=== PATIENT | female | born 2000 | race Hispanic/Latino ===

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

== ENCOUNTER 2019-03-16 20:11 | Observation (INO) | payer SELFPAY ==
[2019-03-16 20:34] LABS: Bilirubin Negative (Negative); Blood, Urine Negative (Negative); Clarity Clear (Clear); Glucose, Urine (Dipstick) Negative (Negative); Leukocyte Trace (Negative); Nitrite Positive (Negative); Protein, Urine (Dipstick) 30 mg/dL (Neg-Trace); Specific Gravity, Urine 1.025 (1.005-1.030); Urobilinogen 0.2 mg/dL (0.2-1.0); pH, Urine 6.5 (5.0-9.0)
[2019-03-16 20:36] LABS: RBC/HPF 0-3 HPF (0-3)
[2019-03-16 20:37] LABS: Bacteria/HPF 3+ HPF (None Seen); Hyaline Casts/LPF 0-3 HYALINE CAST LPF (0-3 Hyaline); Squamous Epithelial 0-3 HPF (0-3)
[2019-03-16] MEDS ORDERED: cefTRIAXone\\ROCEPHIN 1 GM VIAL ONE ×2 (20:47→22:12)
[2019-03-16] MEDS ORDERED: Metoclopramide HCl 10 MG/2 ML VIAL ONE (20:47)
[2019-03-16 20:49] LABS: #Lymphocytes 0.9 thou/uL (1.20-3.40); #Monocytes 0.3 thou/uL (0.11-0.59); #Neutrophils 7.7 thou/uL (1.40-6.50); %Basophils 0.4 % (0.0-1.0); %Lymphocytes 9.9 % (28.0-48.0); %Monocytes 3.3 % (0.0-4.0); %Neutrophils 86.4 % (31.0-61.0); Hemoglobin 14.5 g/dL (12.0-16.0); Mean Corpuscular HGB CONC 35.1 g/dL (32.0-36.0); Mean Corpuscular Hemoglobin 30.6 pg (25.0-35.0); Mean Corpuscular Volume 87.1 fL (78.0-98.0); Mean Platelet Volume 11.4 fL (7.4-10.4); Platelet Count 164 thou/uL (130-400); RBC Distribution Width 11.1 % (11.5-14.5); Red Blood Cell (RBC) Count 4.74 mill/uL (4.00-5.20); White Blood Cell (WBC) Count 8.9 thou/uL (4.8-10.8)
[2019-03-16 20:59] LABS: Bicarbonate (HCO3v) 19.8 mmol/L (22.0-28.0); Calcium, Ionized 1.11 mmol/L (See Comments:); Chloride 108 mmol/L (98-107); Hemoglobin - Calc 14.5 g/dL (12.0-16.0); O2 Tension (PvO2) 65.4 mmHg (35.0-45.0); Potassium 3.5 mmol/L (3.5-5.1); Sodium 135 mmol/L (138-145); T. Carbon Dioxide 20.8 mmol/L (22.0-28.0); pH (Venous) 7.399 (7.320-7.430); vO2 Saturation-calc 92.8 % (60.0-85.0)
[2019-03-16 21:09] LABS: ALT (SGPT) 38 U/L (8-55); AST (SGOT) 21 U/L (5-30); Albumin 4.7 g/dL (3.5-5.0); Alkaline Phosphatase 60 U/L (40-150); Anion Gap 16 mmol/L (10-20); BUN (Urea Nitrogen) 10 mg/dL (8.4-21.0); Bilirubin, Total 0.6 mg/dL (0.2-1.2); Calc. Creatinine Clearance 0 mL/min (70-130); Calcium 10.1 mg/dL (7.8-10.44); Carbon Dioxide 18 mmol/L (22-29); Chloride 106 mmol/L (98-107); Estimated GFR-MDRD Greater than 90; Globulin 3.1 g/dL (2.4-3.5); Glucose 97 mg/dL (70-105); Lipase 15 U/L (8-78); Potassium 3.7 mmol/L (3.5-5.1); Protein, Total 7.8 g/dL (6.0-8.3); Sodium 136 mmol/L (136-145)
[2019-03-16] MEDS ORDERED: 1/2 NS w/KCL 20 mEq 0 ML ONE (22:12)
[2019-03-16] MEDS ORDERED: Sodium Chloride 0.9% 100 ML ONE (22:12)
--- NOTE | 2019-03-16 22:12 | PDOC.EVN ---
Event Note - Event Note Event Note: HISTORY AND PHYSICAL Time: 2209 Location: [facility] ED Events: I just discussed the case with Huyen Orellana and acceptred the patient as a direct admission CC: N/V at home HPI: 18 yo G1 at 7 weeks with DX of possible pyelo due to 3+ bacteria on UA and N/V. She is afebrile. She is still at [facility] ED. I have taken the report. She has not yet seen an OB provider. No VB. OB sono will be ordered here at . Review of Systems: ROS completed and as per HPI Past medical HX: neg Surgical HX: none Social HX: negative Physical: Afebrile, normotensive but [id number] NAD abd soft No VB CBC with WBC 8.9 LFTs wnl Cr normal Assessment and plan: 1. 7 weeks by LMP, no OB care yet...UA with evidence UTI. Although afebrile, we will admit as cannot hold down po ABX. 1. Admit here for IV rocephin 2. Will have urine culture and blood culture sent there 3. zofran prn 4. Give D5LR, then swtitch to [facility] for rocephin
[2019-03-16] MEDS ORDERED: Sodium Chloride 0.9% 1,000 ML IV SCH (22:15)
[2019-03-16] MEDS ORDERED: Dextrose 5%-Lactated Ringers 1,000 ML IV SCH (22:15)
--- NOTE | 2019-03-16 22:21 | PDOC.EVN ---
Event Note - Event Note Event Note: Med change: I will switch from zofran to phenergan
[2019-03-16] MEDS ORDERED: Promethazine HCl 25 MG/ML VIAL IM/IV PRN (22:22)
[2019-03-16] MEDS ORDERED: Multivitamins, Adult 10 ML, Folic Acid 1 MG, Thiamine HCl 100 MG in Dextrose 5 %-0.45 %... IV SCH (23:00)
[2019-03-16] MEDS ORDERED: cefTRIAXone\\ROCEPHIN 2 GM in Sodium Chloride 0.9% 100 ML IVPB SCH (23:00)
[2019-03-16 23:43] VITALS: BMI 20.4
[2019-03-16] MEDS ORDERED: Ondansetron HCl/PF 4 MG in Sodium Chloride 0.9% 50 ML IVPB SCH (23:59)
[2019-03-16] MEDS ORDERED: Ondansetron PF 4 MG/2 ML Vial SLOW IVP SCH (23:59)
[2019-03-17] MEDS: Sodium Chloride 0.9% 1,000 ML IV SCH ×3 (01:16→15:01)
--- NOTE | 2019-03-17 06:45 | PDOC.OBAPN ---
FMR OB AP PN: Sub - Interval History Hospital Day: 2 Chief Complaint: N/V, UTI sx's Indentification: 18 yo @ 7.5 wks by 7.4 wk sono done yesterday Interval History: Pt reports feeling much better. Denies any pain. Tolerating PO FMR OB AP PN: Obj - Maternal Vital signs: BP: [101/54] HR: [101] RR: [18] Tmax: [98.2] Pox: [100]% on [RA] Wt: [45 kg] - Urine output I&O: 03/15/19 03/16/19 03/17/19 06:59 06:59 06:59 Intake Total 2388 Output Total 600 Balance 1788 FMR OB AP PN: Exam - Physical Exam General: NAD, awake, alert and oriented HEENT: normocephalic and atraumatic, PERRLA, no scleral icterus, grossly normal vision, grossly normal hearing Neck: supple, no LAD Heart: RRR, normal S1/S2, no murmurs/rubs/gallops, pulses present, no edema General: CTAB, no respiratory distress, good air movement, no rales/rhonchi, no wheezing, no retractions Abdomen: soft, gravid, non-tender, bowel sound present, no masses, no hernias, other (No CVA tenderness noted) Musculoskeletal: normal gait and station, pulses present Neurological: sensation to pain,touch and proprioception grossly normal Skin: no rash Psychiatric: intact recent and remote memory, good judgement and insight, normal mood and affect FMR OB AP PN: Data - Labs Lab results: Laboratory Results - last 24 hr 03/16/19 03/16/19 03/16/19 20:22 20:40 20:40 WBC 8.9 RBC 4.74 Hgb 14.5 Hct 41.3 POC Venous Hct MCV 87.1 MCH 30.6 MCHC 35.1 RDW 11.1 L Plt Count 164 MPV 11.4 H Neutrophils % 86.4 H Lymphocytes % 9.9 L Monocytes % 3.3 Eosinophils % 0.0 Basophils % 0.4 Neutrophils # 7.7 H Lymphocytes # 0.9 L Monocytes # 0.3 Eosinophils # 0.0 Basophils # 0.0 POC Bicarbonate Calc POC VBG pH VBG pCO2 VBG pO2 POC VBG CO2 (Calc) POC VBG O2 Sat (Calc) POC VBG Base Excess POC VBG Hemoglobin Calc POC Venous Sodium Sodium 136 POC Venous Potassium Potassium 3.7 POC Venous Chloride Chloride 106 Carbon Dioxide 18 L Anion Gap 16 POC Noel Anion Gap Calc BUN 10 Creatinine 0.60 Estimated GFR (MDRD) Greater than 90 Glucose 97 Lactic Acid Calcium 10.1 POC Venous Ion Calcium Total Bilirubin 0.6 AST 21 ALT 38 Alkaline Phosphatase 60 Serum Total Protein 7.8 Albumin 4.7 Globulin 3.1 Albumin/Globulin Ratio 1.5 Lipase 15 Urine Color Yellow Urine Clarity Clear Urine pH 6.5 Ur Specific [place] 1.025 Urine Protein 30 H Urine Glucose (UA) Negative Urine Ketones > or equal to 80 H Urine Blood Negative Urine Nitrite Positive H Urine Bilirubin Negative Urine Urobilinogen 0.2 Ur Leukocyte Esterase Trace H Urine RBC 0-3 Urine WBC 11-20 H Ur Squamous Epith Cells 0-3 Urine Bacteria 3+ H Hyaline Casts 0-3 HYALINE CAST 03/16/19 03/16/19 20:40 20:40 WBC RBC Hgb Hct POC Venous Hct 43.0 MCV MCH MCHC RDW Plt Count MPV Neutrophils % Lymphocytes % Monocytes % Eosinophils % Basophils % Neutrophils # Lymphocytes # Monocytes # Eosinophils # Basophils # POC Bicarbonate Calc 19.8 L POC VBG pH 7.399 VBG pCO2 32.0 L VBG pO2 65.4 H POC VBG CO2 (Calc) 20.8 L POC VBG O2 Sat (Calc) 92.8 H POC VBG Base Excess -4.0 L POC VBG Hemoglobin Calc 14.5 POC Venous Sodium 135 L Sodium POC Venous Potassium 3.5 Potassium POC Venous Chloride 108 H Chloride Carbon Dioxide Anion Gap POC Noel Anion Gap Calc 11 BUN Creatinine Estimated GFR (MDRD) Glucose Lactic Acid 1.4 Calcium POC Venous Ion Calcium 1.11 Total Bilirubin AST ALT Alkaline Phosphatase Serum Total Protein Albumin Globulin Albumin/Globulin Ratio Lipase Urine Color Urine Clarity Urine pH Ur Specific [place] Urine Protein Urine Glucose (UA) Urine Ketones Urine Blood Urine Nitrite Urine Bilirubin Urine Urobilinogen Ur Leukocyte Esterase Urine RBC Urine WBC Ur Squamous Epith Cells Urine Bacteria Hyaline Casts - Imaging Imaging: Sono done yesterday @ 03/16 showed 7.4 wk . Sono inconsistent with dates by LMP. ELISA updated to 10/29/2019 by 7.4 wk sono. IUP noted. Ovary's normal. FMR OB AP PN: A/P - Problem List (1) Pyelonephritis affecting in first trimester Current Visit: Yes Status: Acute Code(s): O23.01 - INFECTIONS OF KIDNEY IN , FIRST TRIMESTER (2) Morning sickness Current Visit: Yes Status: Acute Code(s): O21.0 - MILD HYPEREMESIS GRAVIDARUM (3) Current Visit: Yes Status: Acute Disposition: 18 yo @ 7.5 wks dated by 7.4 wk Sono here with pyelo and intractable N/V of Pyelonephritis -No fevers since admission. -Continue Rocephin IV. -U/A shows Nitrite +, Trace LE and 3+ Bacteria. Urine Cx pending. -No CVA tenderness Will continue IV abx for today. will await cx. Continue to monitor for fever and tx as needed. N/V of -Promethazine PRN. -Banana bag administered. -Pt tolerating PO at this time. Will hold fluids. Discussion: Date/Time: 03/17/19 0644
--- NOTE | 2019-03-17 07:24 | ULT ---
ULTRASOUND: Date: 03/16/19 INDICATION: Hyperemesis gravidarum. FINDINGS: There is an early live intrauterine gestation with cardiac activity documented, 163 bpm. Within a gestational sac, there is evidence of a pole and yolk sac. By crown-rump length measurement, the average gestational age by ultrasound is 7 weeks/4 days, placing estimated date of delivery at 0 10/29/2019. Stage of clinical dates are 8 weeks/4 days. No significant abnormality of the ovaries. No free pelvic fluid is seen. IMPRESSION: 1. Early live intrauterine gestation as above. 2. Continued imaging follow-up may be obtained as clinically necessary. POS: CHRISTOPHER
[2019-03-17] MEDS ORDERED: Cephalexin 250 MG CAP PO SCH (09:30)
[2019-03-17] MEDS ORDERED: cefTRIAXone\\ROCEPHIN 2 GM in Sodium Chloride 0.9% 100 ML IVPB SCH ×2 (18:30→21:00)
[2019-03-17 21:30] VITALS: BP 93/52; TEMP 98.2
--- NOTE | 2019-03-18 14:00 | DIS ---
DATE OF ADMISSION: 03/16/2019 DATE OF DISCHARGE: 03/17/2019 ADMITTING DIAGNOSES: Seven week gestation with possible pyelonephritis and urinary tract infection. DISCHARGE DIAGNOSES: Urinary tract infection, at 7 weeks gestation. HOSPITAL COURSE: The patient is a 18-year-old female, who was admitted for concerns of pyelonephritis from ER evaluation. The patient was placed on Rocephin and urine cultures and blood cultures were collected. Over the course of her stay here, the patient has remained afebrile. She had no CVA tenderness, was tolerating p.o. well and tolerated p.o. Keflex without any difficulty. Given the entire clinical picture yesterday after admission from the outside facility, decision was made to discharge the patient home on Keflex with instructions to follow up on her urine culture sensitivities as her urine cultures had grown back E coli within first 24 hours. The patient has remained afebrile at time of my evaluation yesterday evening. The patient denied any pain or bleeding or fever. Temperature at time of discharge is 98.22, pulse of 80, respiratory rate of 16, saturating at 100% on room air, blood pressure 93/52. Urine culture is positive for E coli with ferrara sensitivity. The patient was discharged home on Keflex 500 mg to be taken 3 times a day for the next 5 days. She was also given a dose of Rocephin prior to discharge yesterday evening. She has not established care with an OB provider as of yet. I did legal counsel the clinic does see patients prior to the insurance being completed and have counseled her to go there for followup in the next week or so. The patient is being discharged to home on Keflex 500 mg 3 times a day with instructions to follow up with primary clinic. Job ID: [id number]
== END 2019-03-17 20:48 | disposition home or self-care (01) ==
LOC: SCSER 20:11 → 3SW 22:55
PROVIDERS: ADMIT Obstetrics & Gynecology; ATTEND Obstetrics & Gynecology
DX: O23.01 Infections of kidney in pregnancy, first trimester (principal); B96.20 Unspecified Escherichia coli [E. coli] as the cause of diseases classified elsewhere; O21.9 Vomiting of pregnancy, unspecified; Z3A.01 Less than 8 weeks gestation of pregnancy
CPT/HCPCS: 36415; 76856; 80053; 81003; 81015; 82330; 82803; 83605; 83690; 85025; 87040; 87077; 87086; 87186; 96361; 96365; 96366; 96367; 96368; G0378; J0696; J2765; J3411; J3480; J3490; J7042

== ENCOUNTER 2019-10-12 15:16 | Day surgery (SDC) | payer OTHER ==
[2019-10-12 16:01] VITALS: BMI 27.4
[2019-10-12] MEDS ORDERED: Acetaminophen 500 MG TAB PO SCH (16:30)
[2019-10-12] MEDS ORDERED: Iron Sucrose Complex 500 MG in Sodium Chloride 0.9% 250 ML 250 ML IVPB SCH (16:30)
[2019-10-12] MEDS ORDERED: hydrALAZINE 20 MG/ML VIAL SLOW IVP PRN (17:15)
[2019-10-12] MEDS ORDERED: Ondansetron PF 4 MG/2 ML Vial IVP PRN (17:15)
[2019-10-12] MEDS ORDERED: Promethazine HCl 25 MG/ML VIAL IM PRN (17:15)
--- NOTE | 2019-10-12 17:22 | PDOC.FPROB ---
FMR OB H&P: HPI - History of Present Illness Chief Complaint: Anemia- Iron Infusion History of Present Illness: Pt is a 19 yo F G1PO @ 37.4 wks via 7.4 wk US with recent GBS bacturia who present for iron infusion. She says she has had no bleeding, LOF, contractions. She endorses good movement. Primary Care Physician: KIKI- ELIZABETH FMR OB H&P: Current - Care : 1 Para: 0 Gestational age: 37.4 Due date: 10/29/19 Dating Criteria: 7.4 wk US FMR OB H&P: History - Past Medical History PMH: None - OB History OB History: Anemia of , GBS Bacturia - Surgical History Sx History: None - Social History Social History: No tobacco, alcohol, or recreational drug use. - Family History Family History: None FMR OB H&P: Medications - Current Home Medications: Medication Instructions Recorded Confirmed Type Ferrous Sulfate [Iron] 325 mg PO DAILY 10/12/19 10/12/19 History [id number]/Iron Fum/Folic/Docusate 100 mg PO DAILY 10/12/19 10/12/19 History [ 19] Allergies/Adverse Reactions: Allergies Allergy/AdvReac Type Severity Reaction Status Date / Time No Known Drug Allergies Allergy Verified 10/12/19 16:01 FMR OB H&P: ROS - Review of Systems General: denies: fever/chills Eyes: denies: vision changes ENT: denies: nasal congestion, rhinorrhea Cardiovascular: denies: chest pain, palpitation Respiratory: denies: cough, congestion, shortness of breath Gastrointestinal: denies: abdominal pain, nausea, vomiting, diarrhea, constipation Genitourinary (Female): denies: vaginal discharge, vaginal bleeding Musculoskeletal: denies: pain, stiffness, swelling Neurologic: denies: numbness, weakness, headache Integumentary: denies: rash Hematologic/Lymphatic: denies: prolonged or excessive bleeding FMR OB H&P: Vital Signs - Maternal Vital signs: BP: 119/69, HR: 85 - Heart Tones Baseline: 130 Variability: moderate Acceleration: present Deceleration: absent Category: category 1 FMR OB H&P: Physical Exam - Physical Exam General: NAD, awake, alert and oriented HEENT: normocephalic and atraumatic, PERRLA, oropharynx clear Neck: supple, trachea midline, no LAD Heart: RRR, normal S1/S2, no murmurs/rubs/gallops General: CTAB, no respiratory distress, good air movement, no rales/rhonchi, no wheezing, no retractions Abdomen: soft, gravid, non-tender, bowel sound present Musculoskeletal: pulses present, FROM in all four extremities Neurological: cranial nerves II through XII intact, no focal deficit Skin: no rash, capillary refill <2 seconds Lymphatic: no unusual bruising or bleeding Psychiatric: normal mood and affect FMR OB H&P: A/P - Problem List (1) Anemia affecting in third trimester Status: Acute Code(s): O99.013 - ANEMIA COMPLICATING , THIRD TRIMESTER (2) GBS bacteriuria Status: Acute Code(s): R82.71 - BACTERIURIA (3) Status: Acute Disposition: Pt is a 19 yo F @ 37.4 wks by LMP with anemia of who presents for iron transfusion. 1. Anemia of * Unable to obtain records unsure of what her last H&H was * Will transfuse iron per protocol * Will give benadryl if needed for transfusion reaction 2. Intrauterine 37.4 wks by 7.4 wk US * Will keep her on monitoring during transfusion 3. GBS Bacturia Currently on Amoxicillin Dispo: Pending transfusion Discussion: Date/Time: 10/12/19 1720 This H&P was discussed with [] and [] who agree with the above documentation and plan. Addendum - Attending - Attending Attestation Date/Time: 10/13/19 1006 I personally evaluated the patient and discussed the management with Dr. Shawn Suarez on 10/12/2019 I agree with the History, Examination, Assessment and Plan documented above with any addition or exceptions noted below - 19 yo @37.4 weeks here for iron infusion. Denies any ctx, LOF. (+) FM. Afebrile VSS. Exam repeated by me and agree with resident's findings. A/P: 1) IUP@37.4 weeks with anemia of - IV iron infusion as per protocol. D/c home after infusion if no reaction. Cat 1 FHTs.
== END 2019-10-12 23:00 | disposition home or self-care (01) ==
LOC: L&D/OP 15:16
PROVIDERS: ATTEND Family Medicine
DX: O99.013 Anemia complicating pregnancy, third trimester (principal); D64.9 Anemia, unspecified; O99.89 Other specified diseases and conditions complicating pregnancy, childbirth and the puerperium; R82.71 Bacteriuria; Z3A.37 37 weeks gestation of pregnancy; Z79.899 Other long term (current) drug therapy
CPT/HCPCS: J1756; J7050

== ENCOUNTER 2019-10-27 05:52 | Emergency (ER) | payer OTHER ==
[2019-10-27] MEDS ORDERED: diphenhydrAMINE 25 MG CAP ONE (06:02)
== END 2019-10-27 06:06 | disposition home or self-care (01) ==
LOC: ERS 05:52
DX: O99.713 Diseases of the skin and subcutaneous tissue complicating pregnancy, third trimester (principal); L50.9 Urticaria, unspecified; Z3A.39 39 weeks gestation of pregnancy
CPT/HCPCS: 99282; Q0163

== ENCOUNTER 2019-10-30 18:36 | Inpatient (IN) | payer OTHER ==
--- NOTE | 2019-10-30 16:34 | PDOC.FPROB ---
FMR OB H&P: HPI - History of Present Illness Chief Complaint: elective IOL Indentification: 19 yo G1 at 40.1 here for elective IOL History of Present Illness: 19 yo G1 at 40.1 by 7.4 wk sono here for elective IOL (ELISA 10/29/19). has been uncomplicated with the only problems complicated UTI (due to ) colonizing GBS and anemia of requiring 1 iron infusion. Tonight she reports no VB/VD/LOF. Endorses FM. No further concerns. She is unsure if she wants epidural placed. She has a diffuse, pruritic rash on her body from the neck down originating on Monday. Rash involves extremities, abdomen, back torso but spares the head. She was seen in the emergency department on Monday and prescribed Prednisone for the rash. Initially the rash began resolving until she missed a dose yesterday. Afterwards the rash became slightly worse. The rash is pruritic in nature, has not had any open lesions. She introduced a new lotion this previous Monday to her abdomen. She denies fever, chills, change in shampoo/body wash, new clothes, new sheets, bug bites, outdoor exposure. Primary Care Physician: Cameron FMR OB H&P: Current - Care : 1 Para: 0 Gestational age: 40.1 Due date: 10/29/19 Dating Criteria: 7.4wk sono Total weight gain: 37lb - OB Labs Blood type: O RH: positive Antibody Screen: negative HIV: negative RPR: negative HepBsAg: negative Rubella: immune Gonorrhea: negative Chlamydia: negative 1 hour gtt: 134 GBS: positive (GBS bacteriuria) - Anatomy Survey Anatomy survey: [place] 83% S=D FMR OB H&P: History - Past Medical History PMH: None - OB History OB History: First - SOURCE INSPECTOR History SOURCE INSPECTOR History: None - Surgical History Sx History: None - Social History Social History: Denies TAD - Family History Family History: Non contributory FMR OB H&P: Medications - Current Home Medications: Medication Instructions Recorded Confirmed Type Ferrous Sulfate [Iron] 325 mg PO DAILY 10/12/19 10/31/19 History [id number]/Iron Fum/Folic/Docusate 100 mg PO DAILY 10/12/19 10/31/19 History [ 19] Prednisone [predniSONE 10 mg 1 tab PO DAILY 10/31/19 10/31/19 History Dosepak] Allergies/Adverse Reactions: Allergies Allergy/AdvReac Type Severity Reaction Status Date / Time cocoa butter Allergy Rash Verified 10/31/19 02:10 No Known Drug Allergies Allergy Verified 10/12/19 16:01 FMR OB H&P: ROS - Review of Systems General: denies: fever/chills, weight/appetite/sleep changes Eyes: denies: eye pain, vision changes ENT: denies: nasal congestion, rhinorrhea Cardiovascular: reports: edema. denies: chest pain, palpitation Respiratory: denies: cough, congestion Gastrointestinal: denies: abdominal pain, indigestion, bloating, nausea, vomiting, diarrhea, constipation Genitourinary (Female): denies: incontinence, dysuria, hematuria, vaginal discharge, vaginal pain, vaginal bleeding, contractions Musculoskeletal: denies: pain, stiffness Neurologic: denies: numbness, syncope Integumentary: reports: itching, rash Psychological: denies: depression, anxiety FMR OB H&P: Vital Signs - Heart Tones Baseline: 130 Variability: moderate Acceleration: present Category: category 1 FMR OB H&P: Physical Exam - Physical Exam General: NAD, awake, alert and oriented HEENT: PERRLA, EOMI Neck: FROM, trachea midline Heart: RRR, normal S1/S2 Deviation from normal: Trace LE edema General: CTAB, no respiratory distress, good air movement, no rales/rhonchi, no wheezing Abdomen: soft, gravid, non-tender, bowel sound present Musculoskeletal: pulses present, FROM in all four extremities Neurological: cranial nerves II through XII intact, sensation to pain,touch and proprioception grossly normal Skin: capillary refill <2 seconds Deviation from normal: Pruritic rash diffuse, below the neck; raised wheals worse on legs Lymphatic: no purpura, no petechia Psychiatric: good judgement and insight, normal mood and affect FMR OB H&P: A/P - Problem List (1) 40 weeks gestation of Current Visit: No Status: Acute Code(s): Z3A.40 - 40 WEEKS GESTATION OF (2) Anemia affecting in third trimester Current Visit: No Status: Acute Code(s): O99.013 - ANEMIA COMPLICATING , THIRD TRIMESTER (3) GBS bacteriuria Current Visit: No Status: Acute Code(s): R82.71 - BACTERIURIA (4) Urticaria Current Visit: Yes Status: Acute Code(s): L50.9 - URTICARIA, UNSPECIFIED Discussion: Date/Time: 10/31/19 020 1. sIUP at 40.1 WGA, elective induction -FHT: Cat I, non-painful uterine contractions q6mins -Sono shows baby cephalic. -SVE: 1 cm/50%/-3 2. Anemia of -Has required iron infusion in x1 -CBC w/ admission labs -Continue iron as indicated 3. GBS bacteriuria -PCN ppx intrapartum 4. Urticaria Likely secondary to new lotion used. Seen in ED and prescribed prednisone x 5 days this previous Monday. -continue prednisone at this time This H&P was discussed with Dr. Ratliff who agrees with the above documentation and plan. Addendum - Attending - Attending Attestation Date/Time: 10/31/19 08 I personally evaluated the patient and discussed the management with Dr. Bhardwaj I agree with the History, Examination, Assessment and Plan documented above with any addition or exceptions noted below - 19 yo @ 40.2 weeks admitted for elective induction, Occ ctx; Denies LOF, VB (+) FM. Afebrile VSS. SVE 50/- 3 initially now 70/-2 BBOW. A/P: 1) IUP@ 40.2 weeks for electve induction - received 1 cytotec and progressing well. Requesting epidural for pain management. 2) GBS (+) - continue PCN prophylaxis.
[2019-10-31] MEDS ORDERED: NS / Oxytocin 40 units/1000ml 1,000 ML IV PRN (01:56)
[2019-10-31] MEDS ORDERED: Promethazine HCl 25 MG/ML VIAL IM PRN ×2 (01:56→10:19)
[2019-10-31] MEDS ORDERED: hydrALAZINE 20 MG/ML VIAL SLOW IVP PRN ×2 (01:56→23:27)
[2019-10-31] MEDS ORDERED: Lidocaine 1% (PF) 30 ML VIAL SC PRN (01:56)
[2019-10-31] MEDS ORDERED: Ondansetron PF 4 MG/2 ML Vial IVP PRN ×2 (01:56→10:19)
[2019-10-31] MEDS ORDERED: Misoprostol 200 MCG TAB PR PRN (01:56)
[2019-10-31] MEDS ORDERED: Ibuprofen 800 MG TAB PO PRN (01:56)
[2019-10-31] MEDS ORDERED: NS w/ Oxytocin 10 units 500 ML IV SCH ×2 (02:00)
[2019-10-31] MEDS ORDERED: Penicillin G Potassium 5 MILL.UNITS in Sodium Chloride 0.9% 100 ML IVPB SCH (02:00)
[2019-10-31] MEDS ORDERED: Misoprostol 100 MCG TAB VAG SCH ×2 (02:00)
[2019-10-31 02:19] VITALS: BMI 28.0
[2019-10-31 02:53] LABS: Mean Corpuscular Hemoglobin 27.4 pg (25.0-35.0); Mean Corpuscular Volume 80.6 fL (78.0-98.0); Mean Platelet Volume 11.6 fL (7.4-10.4); Platelet Count 156 thou/uL (130-400); RBC Distribution Width 21.5 % (11.5-14.5); White Blood Cell (WBC) Count 6.9 thou/uL (4.8-10.8)
[2019-10-31] MEDS: Lactated Ringer's 1,000 ML IV SCH ×2 (02:53→08:07)
[2019-10-31 03:32] LABS: HBSAg Index 0.24 S/CO (0-0.99); Hep B Surf Ag Non-Reactive S/CO (NonReactive)
[2019-10-31 06:11] LABS: Syphilis Antibody Nonreactive (Nonreactive); Syphilis Antibody Index 0.03 S/CO (<1.00 Non-Reactive)
[2019-10-31] MEDS ORDERED: Fentanyl 4 mcg/Bup 0.1% Cadd 100 ML ONE ×2 (07:54→15:27)
--- NOTE | 2019-10-31 08:24 | PDOC.LDPN ---
Labor & Delivery Progress Note - Subjective Subjective: comfortable - Objective General: NAD Dilation: 1.5 Effacement: 75% Station: -3 - Assessment (1) 40 weeks gestation of Code(s): Z3A.40 - 40 WEEKS GESTATION OF Current Visit: No Status: Acute (2) Anemia affecting in third trimester Code(s): O99.013 - ANEMIA COMPLICATING , THIRD TRIMESTER Current Visit: No Status: Acute (3) GBS bacteriuria Code(s): R82.71 - BACTERIURIA Current Visit: No Status: Acute (4) Urticaria Code(s): L50.9 - URTICARIA, UNSPECIFIED Current Visit: Yes Status: Acute Plan: continue plan of care -: # sIUP at 40.1 WGA, elective induction FHT: Cat I, non-painful uterine contractions q1-2mins SVE: 1.5 cm/75%/-3 Will not administer second dose of cytotec at this time due to tachysystole.
--- NOTE | 2019-10-31 09:28 | PDOC.LDPN ---
Labor & Delivery Progress Note - Subjective Subjective: comfortable - Objective Vital signs reviewed and normal: yes General: NAD, resting Uterine fundus: non tender Dilation: 5/70/-2 Effacement: 50% Station: -2 FHT: category 1, variability present (mod) [place] contractions every: 1-1.5 Other exam findings: bulging forebag Plan: continue plan of care, resuscitative measures -: continue expectant mgmt epidural in place
[2019-10-31] MEDS: Penicillin G 2.5 MILL.units 2.5 MILL.UNITS in Premix Bag 1 BAG IVPB SCH ×2 (09:30→14:05)
[2019-10-31] MEDS ORDERED: ePHEDrine/0.9% NaCl/PF SYRINGE 50 mg/10 ml SLOW IVP PRN (10:19)
[2019-10-31] MEDS ORDERED: Acetaminophen 325 MG TAB PO PRN (10:19)
[2019-10-31] MEDS ORDERED: Lactated Ringer's 500 ML IV PRN (10:19)
[2019-10-31] MEDS ORDERED: diphenhydrAMINE 50 MG/ML VIAL IVP PRN (10:19)
[2019-10-31] MEDS ORDERED: Naloxone HCl 0.4 mg/ml Vial IVP PRN ×2 (10:19)
[2019-10-31] MEDS ORDERED: Communication Order-Pharmacy FS SCH (10:30)
[2019-10-31] MEDS ORDERED: Fentanyl 4 mcg/Bupivacaine 0.1% Cassette 100 ML EPIDURAL SCH (10:30)
[2019-10-31] MEDS ORDERED: Bupivacaine HCl 0.5%/Epinephrine 1:200,000/PF 30 ml Vial ONE (11:29)
--- NOTE | 2019-10-31 11:37 | PDOC.LDPN ---
Labor & Delivery Progress Note - Subjective Subjective: comfortable, no concerns - Objective Vital signs reviewed and normal: yes General: NAD, resting, breathing through contractions SVE: bulging forebag, ~6-7 cm before AROM Dilation: 7/80/-2 Effacement: 75% Station: -2 FHT: category 1, variability present (moderate, + accels) [place] contractions every: 1-2 min AROM: clear fluid Plan: continue plan of care -: continue expectant mgmt. AROM at [address]. [address]
--- NOTE | 2019-10-31 13:49 | PDOC.LDPN ---
Labor & Delivery Progress Note - Subjective Subjective: painful contractions (re-dose of epidural.) - Objective Abnormal vital signs: One BP during check was 165/87, HR 117 General: breathing through contractions Dilation: 8/90/-1 per nursing FHT: category 2, early decelerations (x1), variable decelerations (intermittent) [place] contractions every: 2-4 min AROM: clear fluid Plan: continue plan of care -: continue expectant mgmt. epidural in place. patient is making change on her own.
--- NOTE | 2019-10-31 17:11 | PDOC.OPDEL ---
OB Operative/Delivery Note Delivery Dr/Surgeon: Malick Beavers Pre-Delivery Diagnosis: elective induction Procedure/Post Delivery Dx: spontaneous vaginal delivery Anesthesia: epidural - Additional Findings/Plan Placenta delivered: spontaneous Repaired Obstetrical Laceration: vaginal Compilations/Other Findings: Delivering Physician: Nimesh Contreras Attending: Clarissa Procedure: Spontaneous Vaginal Delivery Anesthesia: Epidural, Local QBL:Pending Pre-op Diagnosis: 1. Term intrauterine in labor 2. Hx of iron deficiency anemia requiring IV iron infusion 3. GBS bacteriuria 4. Urticaria Post-op Diagnosis: 1. Term intrauterine , delivered with 2nd degree perineal, b/l left vaginal and b/l left periurethral with 800mcg cytotec 2. Same as above 3. Same as above s/p PCN ppx x2 4. Same as above Indications: A 19 y/o G1 @40.2 admitted for elective induction Delivery Note: This is 19yo F G1 @40.2wks who delivered a viable M infant at 1816 on 10/31/19. Following an uneventful antepartum course, a vigorous M was delivered in the occipitoanterior position. Anterior Shoulder and then remainder of the body delivered. Foot cord. The head was held down and mouth and nares were bulb suctioned. Cord clamped and cut and cord blood collected. Placenta delivered intact via colby mechanism with a 3 vessel cord noted. Fundal massage was performed and the fundus was firm. The cervix and vagina were inspected and b/l periurethral, b/l vaginal sidewall and 2nd degree perineal tear were found and repaired with 3-0 vicryl. 800mcg ctyotec given. . Apgars were 8/9 at 1 & 5 minutes, respectively. Patient tolerated delivery well and went to after routine recovery/care. Post delivery plan: routine recovery Post delivery plan: routine recovery Addendum - Attending - Attending Attestation Date/Time: 11/01/19 9213 I personally evaluated the patient and discussed the management with Dr. Beavers I agree with the History, Examination, Assessment and Plan documented above with any addition or exceptions noted below. Uncomplicated . Bilateral side wall lac with 2nd degree perineal lac. Right side wall and perineal repaired. QBL 470 mL. Routine care.
[2019-10-31] MEDS ORDERED: Bisacodyl 10 MG SUPP PR PRN (23:27)
[2019-10-31] MEDS ORDERED: Milk Of Magnesia 30 ML UDCUP PO PRN (23:27)
[2019-10-31] MEDS ORDERED: NS / Oxytocin 40 units/1000ml 1,000 ML IV SCH (23:27)
[2019-10-31] MEDS ORDERED: Docusate Calcium (SURFAK) 240 MG CAP PO SCH (23:45)
[2019-10-31] MEDS ORDERED: Ibuprofen 800 MG TAB PO SCH (23:45)
[2019-11-01] MEDS: Penicillin G 2.5 MILL.units 2.5 MILL.UNITS in Premix Bag 1 BAG IVPB SCH ×6 (00:30→17:59)
[2019-11-01] MEDS: Lactated Ringer's 1,000 ML IV SCH (00:32)
[2019-11-01] MEDS: Ibuprofen 800 MG TAB PO SCH ×3 (05:22→22:25)
[2019-11-01 06:11] LABS: #Eosinphils 0.3 thou/uL (0.0-0.7); #Lymphocytes 1.4 thou/uL (1.20-3.40); #Monocytes 0.8 thou/uL (0.11-0.59); #Neutrophils 7.7 thou/uL (1.40-6.50); %Basophils 0.3 % (0.0-1.0); %Eosinophils 3.1 % (0.0-10.0); %Lymphocytes 13.6 % (28.0-48.0); %Monocytes 7.4 % (0.0-4.0); %Neutrophils 75.7 % (31.0-61.0); Hemoglobin 7.9 g/dL (12.0-16.0); Mean Corpuscular HGB CONC 32.9 g/dL (32.0-36.0); Mean Corpuscular Hemoglobin 26.6 pg (25.0-35.0); Mean Corpuscular Volume 80.8 fL (78.0-98.0); Mean Platelet Volume 11.5 fL (7.4-10.4); Platelet Count 94 thou/uL (130-400); Platelet Morphology Comment Appears Decreased; RBC Distribution Width 21.3 % (11.5-14.5); RBC Morphology Normal; Red Blood Cell (RBC) Count 2.98 mill/uL (4.00-5.20); White Blood Cell (WBC) Count 10.2 thou/uL (4.8-10.8)
[2019-11-01] MEDS ORDERED: Benzocaine-Menthol 82.5 ML CAN TOP PRN (06:50)
[2019-11-01] MEDS ORDERED: diphenhydrAMINE 25 MG CAP PO PRN (07:15)
--- NOTE | 2019-11-01 07:18 | PDOC.PP ---
Post Progress Note Post Day #: 1 Subjective: NAEO. No concerns. No pain, just some burning at laceration site with urination but medication is helping . No lightheadedness, has not walked yet. Per nursing , minimalbleeding. Passing gas. No fecal incontinence PO intake tolerated: yes Flatus: yes Ambulation: no Vital Signs (12 hours) Temp Pulse Resp BP Pulse Ox 11/01/19 05:02 99.0 F 106 H 16 135/68 10/31/19 23:45 99.0 F 107 H 20 122/89 98 Weight Weight 63.049 kg - Physical Examination General: NAD Cardiovascular: RRR Respiratory: clear to auscultation bilaterally Deviation from normal: uterus firm, left laterally disp.laced Neurological: no gross focal deficits Psychiatric: A&Ox3, normal affect Result Diagrams: 11/01/19 05:26 Additional Labs: Post Labs Blood Type O POSITIVE 10/31/19 03:35 Hep Bs Antigen Non-Reactive S/CO (NonReactive) 10/31/19 02:36 (1) 40 weeks gestation of Code(s): Z3A.40 - 40 WEEKS GESTATION OF Status: Acute (2) Anemia affecting in third trimester Code(s): O99.013 - ANEMIA COMPLICATING , THIRD TRIMESTER Status: Acute (3) GBS bacteriuria Code(s): R82.71 - BACTERIURIA Status: Acute - Assessment/Plan 19 yo G1 admitted for elective IOL s/p term 1. s/p term with 2nd degree laceration, b/l vaginal wall, b/l periurethral, PPD 1 -Doing well, pain controlled 2. Mixed anemia -Hb 7.9, asx -continue iron 3. GBS+ -s/p adequate tx 4. Urticaria -benadryl Addendum - Attending - Attending Attestation Date/Time: 11/01/19 3987 I personally evaluated the patient and discussed the management with Dr. Beavers I agree with the History, Examination, Assessment and Plan documented above with any addition or exceptions noted below. Routine care. Likely d/c tomorrow or monday.
[2019-11-01] MEDS: Ferrous Sulfate 325 MG TAB PO SCH ×2 (08:36→17:59)
[2019-11-01] MEDS: Docusate Calcium (SURFAK) 240 MG CAP PO SCH ×2 (08:36→20:00)
[2019-11-01] MEDS ORDERED: Adacel (T-DAP) 0.5 ML SYRINGE IM ONE (09:00)
[2019-11-02] MEDS: Ibuprofen 800 MG TAB PO SCH (06:06)
--- NOTE | 2019-11-02 08:00 | PDOC.PP ---
Post Progress Note Post Day #: 2 Subjective: NAEO. Doing well, ready for home. Bleeding minimal. PO intake tolerated: yes Flatus: yes Ambulation: yes Vital Signs (12 hours) Temp Pulse Resp BP Pulse Ox 11/02/19 01:00 98.1 F 78 16 121/61 11/01/19 20:00 99 Weight Weight 63.049 kg - Physical Examination General: NAD Cardiovascular: RRR Respiratory: clear to auscultation bilaterally Abdominal: no distention Deviation from normal: urticaria Result Diagrams: 11/01/19 05:26 Additional Labs: Post Labs Blood Type O POSITIVE 10/31/19 03:35 Hep Bs Antigen Non-Reactive S/CO (NonReactive) 10/31/19 02:36 (1) 40 weeks gestation of Code(s): Z3A.40 - 40 WEEKS GESTATION OF Status: Acute (2) Anemia affecting in third trimester Code(s): O99.013 - ANEMIA COMPLICATING , THIRD TRIMESTER Status: Acute (3) GBS bacteriuria Code(s): R82.71 - BACTERIURIA Status: Acute Addendum - Attending - Attending Attestation Date/Time: 11/02/19 0831 I personally evaluated the patient and discussed the management with Dr. Beavers I agree with the History, Examination, Assessment and Plan documented above with any addition or exceptions noted below. PPD#2 Doing well. No complications. Ok to dc to home. Follow up with Dr. Beavers in 2 wks. Naresh
[2019-11-02 09:07] VITALS: BP 123/60; TEMP 98.3
[2019-11-02] MEDS: Docusate Calcium (SURFAK) 240 MG CAP PO SCH (09:17)
[2019-11-02] MEDS: Ferrous Sulfate 325 MG TAB PO SCH (09:17)
--- NOTE | 2019-11-04 05:55 | PQF ---
Dipti Mariano AMANDA MD *r [id number] CLINICAL DOCUMENTATION CLARIFICATION FORM: POST DISCHARGE Addendum to original discharge summary date: ____ Late entry note date: __ DATE:11/04/2019 ATTN: MARISSA PULIDO MD Please exercise your independent, professional judgment in responding to the clarification form. Clinical indicators are provided on the bottom of this form for your review Please check appropriate box(s): [ x ] Acute blood loss anemia [ ] Post-op anemia related to acute blood loss [ x] Iron deficiency anemia [ ] Chronic blood loss Anemia [ ] Other diagnosis [ ] Unable to determine For continuity of documentation, please document condition throughout progress notes and discharge summary. Thank You. CLINICAL INDICATORS - SIGNS / SYMPTOMS / LABS Anemia of ,Has required iron infusion in x1-Documented in [facility] OB history & physicial on 10/31 by Oj Beavers MD Continue iron as indicated-Documented in [facility] OB history & physicial on 10/31 by Oj Beavers MD Hx of iron deficiency anemia requiring IV iron infusion- Documented in OB OP note on 10/31 by Oj Beavres MD Spontaneous vaginal delivery-Documented in OB OP note on 10/31 by Oj Beavers MD QBL-470 ml-Documented in OB OP note on 10/31 by Oj Beavers MD Bilateral side wall lac with 2nd degree perineal lac-Documented in OB OP note on 10/31 by Oj Beavers MD Mixed anemia-Documented in PN on 11/01 by Oj Beavers MD HGB-11.0 on 10/31, HGB-7.9 on 11/01-Documented in Laboratory HCT-32.2 on 10/31, HCT-24.1 on 11/01-Documented in Laboratory RISK FACTORS Hx of iron deficiency anemia requiring IV iron infusion- Documented in OB OP note on 10/31 by Oj Beavers MD Spontaneous vaginal delivery-Documented in OB OP note on 10/31 by Oj Beavers MD TREATMENTS: Continue iron-Documented in PN on 11/01 by Oj Beavers MD Ferrous sulfate 325 mg PO daily-Documented in Medication snapshot [employer] Teacher [employer] Winform Viewer (This form is maintained as a part of the permanent medical record) 2014 [employer]. All Rights Reserved [email or web address] [[email or web address]
== END 2019-11-02 13:30 | disposition home or self-care (01) | DRG 806 ==
LOC: UNDOADMIN 18:36 → L&D 18:36 → UNDOADMIN 10-31 00:05 → 3SW 10-31 23:37
PROVIDERS: ADMIT Family Medicine; ATTEND Family Medicine
PROC: 10E0XZZ Delivery of Products of Conception, External Approach (ICD-10-PCS; principal; 2019-10-31)
PROC: 0KQM0ZZ Repair Perineum Muscle, Open Approach (ICD-10-PCS; 2019-10-31)
PROC: 3E033VJ Introduction of Other Hormone into Peripheral Vein, Percutaneous Approach (ICD-10-PCS; 2019-10-31)
DX: O48.0 Post-term pregnancy (principal); D62 Acute posthemorrhagic anemia; Z37.0 Single live birth; Z3A.40 40 weeks gestation of pregnancy; O99.02 Anemia complicating childbirth; O99.824 Streptococcus B carrier state complicating childbirth; L50.0 Allergic urticaria; O76 Abnormality in fetal heart rate and rhythm complicating labor and delivery; O70.1 Second degree perineal laceration during delivery; D50.9 Iron deficiency anemia, unspecified
CPT/HCPCS: 36415; 51702; 85025; 85027; 86780; 86850; 86900; 86901; 87340; J0670; J2001; J2405; J2540; J3490; Q0163